=== PATIENT | female | born 1995 | race Caucasian/White ===

== ENCOUNTER 2017-12-01 05:54 | Emergency (ER) | payer OTHER ==
[2017-12-01] MEDS: ONDANSETRON (ODT) 4 MG TAB ODT (06:39)
[2017-12-01] MEDS: ACETAMINOPHEN 500 MG TAB PO (06:39)
[2017-12-01] MEDS ORDERED: DICYCLOMINE 10 MG CAP PO (07:00)
[2017-12-01 07:02] LABS: ADD UMIC NO; UR ASCORBIC ACID NEGATIVE (NEGATIVE); UR BACTERIA FEW /HPF (NONE SEEN); UR BILIRUBIN (Dip) NEGATIVE (NEGATIVE); UR BLOOD (Dip) NEGATIVE (NEGATIVE); UR CLARITY SLIGHTLY CLOUDY (CLEAR); UR COLOR YELLOW (YELLOW); UR GLUCOSE (Dip) NEGATIVE (NEGATIVE); UR KETONES (Dip) 1+ mg/dL (NEGATIVE); UR LEUKOCYTE ESTERASE (Dip) NEGATIVE Leu/ul (NEGATIVE); UR MUCUS FEW /HPF (NONE SEEN); UR NITRITE (Dip) NEGATIVE (NEGATIVE); UR RBC 1 /HPF (0-5); UR SPECIFIC GRAVITY (Dip) 1.021 (1.003-1.030); UR SQUAMOUS EPITHELIAL CELL FEW /HPF (FEW); UR TOTAL PROTEIN (Dip) NEGATIVE (NEGATIVE); UR UROBILINOGEN (Dip) NEGATIVE (NEGATIVE); UR WBC 2 /HPF (0-5)
== END 2017-12-01 07:35 | disposition home or self-care (01) ==
LOC: FTE 05:54
DX: R11.2 Nausea with vomiting, unspecified (principal); R50.9 Fever, unspecified; R05 Cough; J45.909 Unspecified asthma, uncomplicated
CPT/HCPCS: 81001; 81003; 84703; 87400; 99284

== ENCOUNTER 2018-12-28 09:50 | Day surgery (SDC) | payer OTHER ==
[2018-12-28] MEDS: LACTATED RINGER'S 1,000 ML IV* (12:05)
[2018-12-28] MEDS ORDERED: HYDROmorphONE 1 MG/5 ML IV SYRINGE IV (13:00)
[2018-12-28] MEDS ORDERED: FENTAnyl 50 MCG/ML VIAL IV (13:00)
[2018-12-28] MEDS ORDERED: ALBUTEROL 0.083% (NEB) 2.5 MG/3 ML AMP HHN (13:00)
[2018-12-28] MEDS ORDERED: OXYCODONE/ACETAMINOPHEN (5/325) TAB PO (13:00)
[2018-12-28] MEDS ORDERED: morphine (1 MG/ML) 10ML SYRINGE IV ×2 (13:00)
[2018-12-28] MEDS ORDERED: CLINDAMYCIN 600 MG/D5W (PMX) 50 ML IVPB (13:00)
[2018-12-28] MEDS ORDERED: MIDAZOLAM 1 MG/ML 2 ML INJ (13:01)
[2018-12-28] MEDS ORDERED: FAMOTIDINE 20 MG INJ (13:01)
[2018-12-28] MEDS ORDERED: FENTAnyl 50 MCG/ML VIAL (13:01)
[2018-12-28] MEDS ORDERED: ONDANSETRON 4 MG INJ (13:01)
[2018-12-28] MEDS ORDERED: PROPOFOL 40 ML (13:08)
[2018-12-28] MEDS ORDERED: LIDOCAINE 2% (SDV) 5 ML INJ (13:08)
[2018-12-28] MEDS: BUPIVACAINE 0.5% (SDV) 30 ML INJ (13:22)
[2018-12-28] MEDS: HYDROmorphONE 1 MG/5 ML IV SYRINGE IV ×2 (14:14→14:32)
[2018-12-28] MEDS: FENTAnyl 50 MCG/ML VIAL IV ×2 (14:14→14:32)
[2018-12-28] MEDS: OXYCODONE/ACETAMINOPHEN (5/325) TAB PO (14:34)
[2018-12-28] MEDS: DIPHENHYDRAMINE 50 MG INJ IV (14:49)
[2018-12-28] MEDS: MEPERIDINE 25 MG INJ IV (14:49)
[2018-12-28] MEDS: LABETALOL HCL 20MG INJ IV (14:50)
[2018-12-28] MEDS: ONDANSETRON 4 MG INJ IV (14:50)
== END 2018-12-28 16:30 | disposition home or self-care (01) ==
LOC: SDS 09:50
DX: M67.432 Ganglion, left wrist (principal); G56.02 Carpal tunnel syndrome, left upper limb; J45.909 Unspecified asthma, uncomplicated
CPT/HCPCS: 25111